=== PATIENT | male | born 1960 | race Caucasian/White ===

== ENCOUNTER 2023-02-18 12:20 | Outpatient (CLI) | payer MEDICAID, SELFPAY ==
--- NOTE | 2023-02-18 10:17 | DI.RAD_ITS ---
Exam(s) XR FOOT LT COMPLETE EXAM: XR FOOT LT COMPLETE CLINICAL HISTORY: left foot pain, dropped beam on leg, M79.672. TECHNIQUE: 2D digital imaging was performed. Three views. COMPARISON: CR LEFT FOOT COMPLETE from 12/31/2012 FINDINGS: BONES: No acute fracture is present. No bony destructive lesion is seen. Stable postsurgical change s in the 1st metatarsal and toes. JOINTS: No dislocation present. SOFT TISSUE: Normal. IMPRESSION: Postsurgical changes. No acute abnormality. DATA REPOSITORY: RADIATION DOSE DELIVERED:
--- NOTE | 2023-02-18 10:17 | DI.RAD_ITS ---
Exam(s) XR ANKLE LT COMPLETE EXAM: XR ANKLE LT COMPLETE CLINICAL HISTORY: left foot and ankle pain, dropped beam on leg, M79.672 TECHNIQUE: 2D digital imaging was performed. Three views. COMPARISON: CR XR FOOT LT COMPLETE from 02/18/2023 FINDINGS: BONES: There is a nondisplaced fracture seen at the tip of the lateral malleolus. No additional frac tures are seen. No bony destructive lesion is seen. JOINTS:The ankle mortise is normally aligned. SOFT TISSUE: Normal. IMPRESSION: Nondisplaced fracture of the lateral malleolus. DATA REPOSITORY: RADIATION DOSE DELIVERED:
== END 2023-02-18 12:40 ==
PROVIDERS: Visit Provider Physician Assistant
DX: S82.64XD Nondisplaced fracture of lateral malleolus of right fibula, subsequent encounter for closed fracture with routine healing; M79.672 Pain in left foot
CPT/HCPCS: 73610; 73630

== ENCOUNTER 2023-03-26 09:36 | Outpatient (CLI) | payer MEDICAID, SELFPAY ==
--- NOTE | 2023-03-26 08:23 | DI.RAD_ITS ---
Exam(s) XR FOOT LT COMPLETE EXAM: XR FOOT LT COMPLETE CLINICAL HISTORY: left ankle fx. TECHNIQUE: 2D digital imaging was performed. COMPARISON: CR LEFT FOOT COMPLETE from 12/31/2012 CR XR FOOT LT COMPLETE from 02/18/2023 FINDINGS: 3 views No evidence of acute fracture nor diastasis of the Lisfranc joint. Healed osteotomy site at the neck of the great toe metatarsal noted with 2 pins at this level and the re is a circumferential wire again noted associated with the proximal medial aspect of the proximal p halanx of the great toe. Lung to 2 knee orientated pins are noted across the PIP joints of the 2nd and 4th toes. Previously p resent similar pin in the 3rd toe seen on 12/31/2012 at has been removed. No hardware in the 5th toe . There is some degenerative change noted at the 2nd tarsometatarsal joint. No erosions evident. Ther e is no radiographic evidence of osteomyelitis. IMPRESSION: Multilevel findings as described above. No obvious acute osseous findings evident. DATA REPOSITORY: RADIATION DOSE DELIVERED:
--- NOTE | 2023-03-26 08:26 | DI.RAD_ITS ---
Exam(s) XR ANKLE LT COMPLETE EXAM: XR ANKLE LT COMPLETE CLINICAL HISTORY: left ankle fx. TECHNIQUE: 2D digital imaging was performed. COMPARISON: CR XR ANKLE LT COMPLETE from 02/18/2023 FINDINGS: 3 views There is soft tissue swelling over the lateral aspect of the ankle, more so than on the previous stud y. The previously described subtle nondisplaced fracture of the lateral malleolus is actually somewh at less evident on the present study. Talar dome unremarkable. There is no widening of the ankle mo rtise. The her malleoli appear unremarkable. No degenerative changes in the ankle and subtalar joints. No osseous tarsal coalition. Incidentally noted is increased density in the pre Achilles fat pad. IMPRESSION: Findings as above but no new osseous findings. DATA REPOSITORY: RADIATION DOSE DELIVERED:
== END 2023-03-26 09:37 | disposition home or self-care (01) ==
LOC: DIORS 09:37
PROVIDERS: Visit Provider Physician Assistant
DX: S82.62XD Displaced fracture of lateral malleolus of left fibula, subsequent encounter for closed fracture with routine healing (principal); X58.XXXD Exposure to other specified factors, subsequent encounter
CPT/HCPCS: 73610; 73630

== ENCOUNTER 2023-03-31 08:45 | Emergency (ER) | payer MEDICAID, SELFPAY ==
[2023-03-31 08:54] VITALS: BP 106/62; PULSE 57; RESP 18; TEMP 36.8; O2SAT 99
--- NOTE | 2023-03-31 09:00 | RT.EKG_ITS ---
APPROVED REPORT Exam: Resting ECG Reason for Exam: sob Patient Location: E HR:50 bpm ECG Measurements Heart Rate 50 AXIS NV 132 P 9 QRSd 90 QRS 79 QT 412 T 68 QTc 375 Conclusion Sinus bradycardia...rate< 60 ST elevation suggests acute pericarditis...ST >0.10mV, ant/lat/inf
--- NOTE | 2023-03-31 10:15 | DI.US_ITS ---
Exam(s) US EXTREMITY VENOUS BI EXAM: US EXTREMITY VENOUS BI CLINICAL HISTORY: leg swelling. TECHNIQUE: Bilateral lower extremity venous ultrasound performed using grayscale, color-flow, and sp ectral Doppler analysis. COMPARISON: No exams were available for comparison FINDINGS: The right common femoral, femoral and popliteal veins demonstrate normal compressibility, augmentatio n, and color Doppler. The posterior tibial and peroneal veins are patent. There is thrombus seen in the small saphenous vein measuring 12.5 cm in length. There is no thrombus seen in the greater saphe nous vein. The saphenofemoral junction is unremarkable. There is no evidence of a Javed's cyst. The soft tissues are unremarkable. The left common femoral, femoral and popliteal veins demonstrate normal compressibility, augmentation , and color Doppler. The posterior tibial and peroneal veins are patent. There is thrombus seen in b oth the greater saphenous and small saphenous veins. The thrombus in the greater saphenous vein lies 1 cm distal to from the saphenofemoral junction. There is a 2.9 x 1.6 x 5.1 cm Javed cyst. The sof t tissues are unremarkable. IMPRESSION: 1. No evidence of a right lower extremity DVT. 2. No evidence of a left lower extremity DVT. 3. Bilateral superficial thrombophlebitis. On the left the thrombus begins 1 cm distal to the saphen ofemoral junction. 4. Findings were discussed with the emergency department on the date of the examination. DATA REPOSITORY:
--- NOTE | 2023-03-31 10:15 | DI.RAD_ITS ---
Exam(s) XR CHEST 2V PA LATERAL EXAM: XR CHEST 2V PA LATERAL CLINICAL HISTORY: ?chf TECHNIQUE: 2D digital imaging was performed of the chest. Three images were obtained. PA and later al views were obtained. COMPARISON: No exams were available for comparison FINDINGS: MEDIASTINUM: Normal. HEART: Normal. PULMONARY VASCULATURE: Normal. LUNGS: There is diffuse prominence of the interstitium. No focal consolidating infiltrate is seen. PLEURAL SPACE: No pleural effusion or pneumothorax. BONE:Within normal limits for the patient's age. OTHER FINDINGS:Normal. IMPRESSION: Diffuse interstitial prominence without focal consolidation. Findings may reflect chronic interstiti al/pulmonary fibrosis. An acute interstitial process such as infection or edema cannot be excluded. Please correlate clinically. DATA REPOSITORY: RADIATION DOSE DELIVERED:
--- NOTE | 2023-03-31 10:29 | ED.GENADUL_ITS ---
Discharge Plan Disposition Patient Disposition: Home Condition: Stable Discharge Details Clinical Impression: Leg swelling, Superficial thrombosis of leg Primary Care Provider: Guanaco Schmitt ED Provider: Lc Kinsey Home Meds and New Rx's Prescriptions: New furosemide [Lasix] 20 mg tablet 20 mg PO QAM Qty: 14 0RF Eliquis DVT-PE Treat 30D Start 5 mg (74 tabs) tablets,dose pack 5 mg PO ONCE Qty: 74 0RF Rx Instructions: 10mg PO twice daily for 7 days then 5mg BID Continued meloxicam 15 MG tablet 15 mg DAILY amitriptyline 10 MG tablet 10 mg PO HS Serevent Diskus 1 EACH blister with device 50 mcg Inhalation BID gabapentin 300 MG capsule 300 mg TID fluticasone propionate [Flovent HFA] 1 PUFF HFA aerosol inhaler 2 puff Inhalation BID albuterol sulfate [Proventil HFA] 1 PUFF HFA aerosol inhaler 1 - 2 puff Inhalation DIRECTED finasteride 5 MG tablet 5 mg DAILY Pulmocare 1,000 ML liquid 240 ml PO BID Spiriva with HandiHaler 1 PUFF capsule, w/inhalation device 1 cap Inhalation DAILY dexlansoprazole [Dexilant] 60 MG capsule,biphase delayed releas 60 mg DAILY trazodone 50 mg Tablet 100 mg PO HS calcium carbonate-vitamin D3 600 mg-5 mcg (200 unit) Tablet 1 tab PO BID omeprazole 40 mg Capsule,Delayed Release(Dr/Ec) 40 mg PO BID famotidine 20 mg Tablet 20 mg PO BID melatonin 5 mg Tablet 5 mg PO HS Discharge Instructions Additional Instructions: You have a superficial blood clot in both lower extremities Take the blood thinner eliquis and the medicine to help remove fluid called furosemide as prescribed follow up with your primary care provider within 1-2 weeks and determine if they want you to continue the furosemide. They will also need to continue the eliquis prescription if you feel more ill, have difficulty breathing or chest pain return to the emergency department Medical Decision Making 62 yo male who is a chronic smoker and states he doesn't get routine visits with a pcp, comes in with several weeks of lower extremity swelling. Denies fevers, chills, chest pain. HE did suffer a left ankle fracture approximately 6 weeks ago and hasn't been as mobile as before. HE arrives stable caox4. No hypoxia, HR in the 50's. Denies any chest pain or dyspnea. HE does have pitting edema from the mid tibia down bilaterally, no calf tenderness, no rashes. He has no jvd. Bedside u/s with normal appearing ef without pericardial effusion. HE does appear to have mild b lines bilaterally on bedside u/s of the lungs. Suspect possible chf vs ckd, and also dvt. Will proceed with cbc, cmp, troponin, cxr and bilateral dvt u/s. Will also give a 20mg dose of lasix pt stable has been urinating and feels well. U/s shows bilateral superficial thrombi with close proximity to the femoral saphonous junction which will require anticaogulation. Labs with milk hyperkalemia otherwise no concerning findings, xray with question of interstitial prominence. HE is stable, discussed results with pt and he feels well enough for d/c and feel this is reasonable given reassuring workup. Will start on po lasix and eliquis and advised to f/u with pcp, return precautions given Differential Diagnosis Differential Diagnosis: chf, ckd, lymphedema, dvt Imaging Data Radiologic Study: Attestation: I personally reviewed and interpreted this imaging study as f cathi: Imaging: CT Scan Radiologist's impression: Exam(s) US EXTREMITY VENOUS BI EXAM:? US EXTREMITY VENOUS BI CLINICAL HISTORY: ? leg swelling.? TECHNIQUE:? Bilateral lower extremity venous ultrasound performed using grayscale, color-flow, and spectral Doppler analysis. COMPARISON:? No exams were available for comparison FINDINGS: The right common femoral, femoral and popliteal veins demonstrate normal compressibility, augmentation, and color Doppler. The posterior tibial and peroneal veins are patent.? There is thrombus seen in the small saphenous vein measuring 12.5 cm in length.? There is no thrombus seen in the greater saphenous vein.? The saphenofemoral junction is unremarkable.? There is no evidence of a Javed's cyst. The soft tissues are unremarkable. The left common femoral, femoral and popliteal veins demonstrate normal compressibility, augmentation, and color Doppler. The posterior tibial and peroneal veins are patent.? There is thrombus seen in both the greater saphenous and small saphenous veins.? The thrombus in the greater saphenous vein lies 1 cm distal to from the saphenofemoral junction.? There is a 2.9 x 1.6 x 5.1 cm Javed cyst.? The soft tissues are unremarkable. IMPRESSION: 1. No evidence of a right lower extremity DVT. 2. No evidence of a left lower extremity DVT. 3. Bilateral superficial thrombophlebitis.? On the left the thrombus begins 1 cm distal to the saphenofemoral junction. 4. Findings were discussed with the emergency department on the date of the examination. Radiologic Study #2: Attestation: I personally reviewed and interpreted this imaging study as follows: Imaging: X-Ray Radiologist's impression: Patient Name: José Luis Veras Unit #: [id number] Loc: ER ? Ordering Provider:? Lc Kinsey M.D. Status: REG ER ? Primary Care Provider: Guanaco Schmitt Date of Exam: 03/31/23 Sex: M ? Admission Date: 03/31/23? : 1960 ? Age: 62 ? Exam(s) XR CHEST 2V PA ? LATERAL EXAM:? XR CHEST 2V PA ? LATERAL CLINICAL HISTORY:? ?chf TECHNIQUE:? 2D digital imaging was performed of the chest.? Three images were obtained.? PA and lateral views were obtained. COMPARISON:? No exams were available for comparison FINDINGS: MEDIASTINUM: Normal.? HEART: Normal. PULMONARY VASCULATURE: Normal. LUNGS: There is diffuse prominence of the interstitium.? No focal consolidating infiltrate is seen. ? PLEURAL SPACE: No pleural effusion or pneumothorax. BONE:Within normal limits for the patient's age.? OTHER FINDINGS:Normal.? IMPRESSION: Diffuse interstitial prominence without focal consolidation.? Findings may reflect chronic interstitial/pulmonary fibrosis.? An acute interstitial process such as infection or edema cannot be excluded.? Please correlate clinically.? a Lab Data Lab results reviewed: Yes I reviewed the patient's lab results. ECG Data Attestation: I personally reviewed and interpreted this ECG (s) as follows: Prior ECG tracings: not available for review Interpretation: sinus bradycardia, rate of 50, pr 132, no stemi HPI General Date/Time Provider Initiated Documentation: 03/31/23 08:54 . Limitations to Documentation: no limitations . Information obtained by: patient . History of Present Illness 62 year old M presents to the emergency department with the chief complaint of leg swelling, described as moderate, Patient started experiencing this week(s) (2) and it has been constant. No relieving factors improve symptom(s), No exacerbating factors reported . Patient notes denies chest pain and fever/chills. Patient did receive the following treatments prior to arrival, none Related Data Home Medications Medication Instructions Recorded Confirmed albuterol sulfate 90 mcg/actuation 1 - 2 puff inhalation DIRECTED 12/29/12 03/31/23 aerosol inhaler (Proventil HFA) amitriptyline 10 mg tablet 10 mg PO HS 12/29/12 03/26/23 dexlansoprazole 60 mg 60 mg DAILY 12/29/12 03/26/23 capsule,biphase delayed release (Dexilant) finasteride 5 mg tablet 5 mg DAILY 12/29/12 03/26/23 fluticasone propionate 220 2 puff inhalation BID 12/29/12 03/26/23 mcg/actuation HFA aerosol inhaler (Flovent HFA) gabapentin 300 mg capsule 300 mg TID 12/29/12 03/26/23 meloxicam 15 mg tablet 15 mg DAILY 12/29/12 03/26/23 nut.tx.pulm.disord.soy,lacfree 240 ml PO BID 12/29/12 03/26/23 (Pulmocare oral liquid) salmeterol 50 mcg/dose blister 50 mcg inhalation BID 12/29/12 03/26/23 powder for inhalation (Serevent Diskus) tiotropium bromide 18 mcg capsule 1 cap inhalation DAILY 12/29/12 03/26/23 with inhalation device (Spiriva with HandiHaler) apixaban 5 mg (74 tabs) tablets in 5 mg PO ONCE #74 dose pk 03/31/23 a dose pack (Eliquis DVT-PE Treat 30D Start) calcium carbonate 600 mg-vitamin 1 tab PO BID 03/31/23 03/31/23 D3 5 mcg (200 unit) tablet famotidine 20 mg tablet 20 mg PO BID 03/31/23 03/31/23 furosemide 20 mg tablet (Lasix) 20 mg PO QAM #14 tabs 03/31/23 melatonin 5 mg tablet 5 mg PO HS 03/31/23 03/31/23 omeprazole 40 mg capsule,delayed 40 mg PO BID 03/31/23 03/31/23 release trazodone 50 mg tablet 100 mg PO HS 03/31/23 03/31/23 Previous Rx's Medication Instructions Recorded apixaban 5 mg (74 tabs) tablets in 5 mg PO ONCE #74 dose pk 03/31/23 a dose pack (Eliquis DVT-PE Treat 30D Start) furosemide 20 mg tablet (Lasix) 20 mg PO QAM #14 tabs 03/31/23 Allergies Allergy/AdvReac Type Severity Reaction Status Date / Time adhesive Allergy Severe Topical Unverified 03/31/23 08:58 Irritation Penicillins Allergy Severe Anaphylaxsi Unverified 03/31/23 08:58 s fentanyl Allergy Unverified 03/31/23 08:58 meperidine HCl [From Demerol] AdvReac Intermediate Nausea Unverified 03/31/23 08:58 morphine AdvReac Intermediate Skin Rash Unverified 03/31/23 08:58 Sulfa (Sulfonamide AdvReac Intermediate Skin Rash Unverified 03/31/23 08:58 Antibiotics) General Stated Complaint: GenMedical RAOUL: 3 Review of Systems All systems reviewed & are unremarkable except as noted in HPI and below Constitutional Constitutional: Denies chills and Denies fever(s) Cardiovascular Cardiovascular: Denies chest pain and Denies dyspnea Respiratory Respiratory: Denies cough and Denies dyspnea Gastrointestinal Gastrointestinal: Denies abdominal pain, Denies nausea and Denies vomiting Integumentary/Breasts Skin/Breast: Denies rash Psychiatric Psychiatric: Denies depression PFSH All Active Problems (Updated 03/31/23 @ 13:48 by Lc Kinsey MD) Leg swelling (Acute) Superficial thrombosis of leg (Acute) Closed fracture of left lateral malleolus (Acute ~02/16/23) Social History Smoking/Tobacco Use Status: Current every day Smoking risk assessment performed?: Yes Drug use: Never Exam Const General: no acute distress Orientation: alert HENMT Head: normal to inspection Ears: external ears normal General nose exam: external nose normal Mouth: moist mucous membranes Eyes General: appearance normal, both eyes and all related structures Neck Neck: normal visual inspection Resp Effort & Inspection: normal respiratory effort and able to speak in complete sentences Auscultation: clear to auscultation bilaterally Cardio Jugular venous pressure: no JVD Rate: regular rate Heart Sounds: no murmurs Skin General skin exam: no rashes or lesions noted Neuro General: patient alert and patient oriented x3 Extrem General: full ROM and capillary refill normal Psych Mental Status: mental status grossly normal Course Vital Signs Vital signs: Vital Signs Temperature 36.8 C 03/31/23 08:54 Pulse 57 L 03/31/23 08:54 Respiratory Rate 18 03/31/23 08:54 Blood Pressure 106/62 03/31/23 08:54 Pulse Oximetry 99 03/31/23 08:54 Temperature 36.8 C 03/31/23 08:54 Temperature Source Skin 03/31/23 08:54 Pulse 57 L 03/31/23 08:54 Respiratory Rate 18 03/31/23 08:54 Blood Pressure 106/62 03/31/23 08:54 Blood Pressure Position Sitting 03/31/23 08:54 Pulse Oximetry 99 03/31/23 08:54 Oxygen Delivery Method Room Air 03/31/23 08:54 Oxygen Flow Rate 0 03/31/23 08:54 Pain Level 5 03/31/23 08:54 POCUS Exam (ED) Limited Cardiac Exam DATE OF EXAM: 03/31/23 TIME OF EXAM: 10:31 PROVIDER THAT PERFORMED THE STUDY: Lc Kinsey REASON FOR EXAM: Other indication: peripheral edema VISUALIZED STRUCTURES: Four Chambers VIEW OBTAINED: Subxiphoid PERTINENT FINDINGS/IMPRESSION: No LV dysfunction and No pericardial effusion Exam complete Limited Thoracic Lung Exam DATE OF EXAM: 03/31/23 TIME OF EXAM: 10:32 PROVIDER THAT PERFORMED THE STUDY: Lc Kinsey REASON FOR EXAM: Other indication: peripheral edema VISUALIZED STRUCTURES: right anterior and left anterior PERTINENT FINDINGS/IMPRESSION: B-lines/left side and B-lines/right side Exam complete
[2023-03-31 10:31] LABS: Abs Immature Grans 0.03 10^3/uL (0.0-0.06); Absolute Basophil Count 0.09 10^3/uL (0.0-0.2); Absolute Eosinophil Count 0.17 10^3/uL (0.0-0.7); Absolute Lymphocyte Count 1.71 10^3/uL (1.2-3.4); Absolute Monocyte Count 0.78 10^3/uL (0.1-0.8); Absolute Neutrophil Count 6.22 10^3/uL (1.2-6.7); Eosinophils % 1.9; HCT 42.1 % (40.0-50.0); HGB 14.1 g/dL (13.5-17.5); Immature Grans % 0.3; MCH 31.2 pg (27.0-33.0); MCHC 33.5 % (32.0-36.0); MCV 93 fL (80-95); MPV 8.1 fL (8.0-11.0); Monocytes % 8.7; Neutrophils % 69.1; Platelet Count 295 10^3/uL (130-400); RBC 4.52 10^6/uL (4.36-5.78); RDW 13.8 % (11.8-14.1); RDW-SD 47.4 fL
[2023-03-31 10:35] VITALS: BP 116/66; PULSE 56; O2SAT 100
[2023-03-31 10:38] VITALS: BP 116/73; PULSE 52; RESP 22; TEMP 36.6; O2SAT 99
[2023-03-31 11:54] VITALS: BP 114/72; PULSE 54; RESP 18; O2SAT 99
[2023-03-31] MEDS: Acetaminophen 500 MG TAB 1000 MG PO (12:06)
[2023-03-31] MEDS: Furosemide 20 MG/2 ML VIAL IVP (12:07)
[2023-03-31 12:40] LABS: Bilirubin Negative (Negative); Blood Negative (Negative); Clarity Clear (Clear); Glucose Negative (Negative); Ketones Negative (Negative); Leukocyte Esterase Trace (Negative); Nitrite Negative (Negative); Specific Gravity 1.015 (1.005-1.025)
[2023-03-31 12:51] LABS: Bacteria Negative HPF (Negative); C & S Indicated? No; Casts Negative LPF (Negative); Crystals Negative HPF (Negative); Epithelial Cells Negative HPF (Negative); Mucus Negative (Negative); RBC 0-2 HPF (0-2)
[2023-03-31 12:56] LABS: ALT 14 U/L (16-63); AST 17 U/L (15-37); Albumin 3.4 g/dL (3.4-5.0); Alkaline Phosphatase 69 U/L (46-116); Anion Gap 7.6 mmol/L (3-11); BUN 7 mg/dL (7-18); Bilirubin, Total 0.5 mg/dL (0.2-1.0); CO2 24.4 mmol/L (21.0-32.0); CREATININE 0.9 mg/dL (0.70-1.30); Calcium 8.2 mg/dL (8.5-10.1); Chloride 104 mmol/L (98-107); Estimated GFR 96.57 (mL/min/1.73m2); Glucose 98 mg/dL (74-106); Potassium 5.2 mmol/L (3.5-5.1); Sodium 136 mmol/L (136-145); Total Protein 6.7 g/dL (6.4-8.2); Troponin I < 50 ng/L (<or=60)
[2023-03-31 14:05] VITALS: BP 113/67; PULSE 52; RESP 18; O2SAT 96
[2023-03-31 14:07] VITALS: BP 106/72; PULSE 54; RESP 18; O2SAT 99
== END 2023-03-31 14:06 | disposition home or self-care (01) ==
PROVIDERS: Emergency Provider Emergency Medicine; PCP Neuromusculoskeletal Medicine & OMM
DX: I82.812 Embolism and thrombosis of superficial veins of left lower extremity (principal); R60.0 Localized edema
CPT/HCPCS: 76604; 80053; 93005; 93308; 96374; 99284; 71046; 81003; 81015; 84484; 85025; 93010; 93970; J1941

== ENCOUNTER 2023-04-27 09:32 | Emergency (ER) | payer MEDICAID, SELFPAY ==
[2023-04-27] VITALS (12 sets, daily range): BP systolic 99–121; BP diastolic 62–73; PULSE 49–54; RESP 20–30; TEMP 36.8; O2SAT 98–100
--- NOTE | 2023-04-27 10:00 | DI.US_ITS ---
Exam(s) US LOWER EXTREMITY VENOUS LT EXAM: US LOWER EXTREMITY VENOUS LT CLINICAL HISTORY: recent dvt, pain is spreading proximally. TECHNIQUE: Lower extremity venous ultrasound performed using grayscale, color-flow, and spectral Do ppler analysis. COMPARISON: US US EXTREMITY VENOUS BI from 03/31/2023 FINDINGS: The common femoral, femoral and popliteal veins demonstrate normal compressibility, augmentation, and color Doppler. The posterior tibial and peroneal veins are patent. There has been decrease in the s ize extent of the thrombus in the greater saphenous vein, now visible in the distal thigh measuring 6 cm in length. Lesser saphenous vein thrombosis has also decreased, measuring 6 cm in length. A Sabina er's cyst is seen. IMPRESSION: Decrease in size and extent greater and lesser saphenous vein thrombosis. No evidence of DVT. Sabina er's cyst. DATA REPOSITORY:
--- NOTE | 2023-04-27 10:05 | W.ED.GENAD ---
Discharge Plan Disposition Patient Disposition: Home Condition: Good Discharge Details Clinical Impression: Superficial thrombosis of leg, Effusion of knee, Javed cyst, Left leg pain Primary Care Provider: Guanaco Schmitt ED Provider: Danette Moyer Home Meds and New Rx's Prescriptions: Continued meloxicam 15 MG tablet 15 mg DAILY amitriptyline 10 MG tablet 10 mg PO HS Serevent Diskus 1 EACH blister with device 50 mcg Inhalation BID gabapentin 300 MG capsule 300 mg TID fluticasone propionate [Flovent HFA] 1 PUFF HFA aerosol inhaler 2 puff Inhalation BID albuterol sulfate [Proventil HFA] 1 PUFF HFA aerosol inhaler 1 - 2 puff Inhalation DIRECTED finasteride 5 MG tablet 5 mg DAILY Pulmocare 1,000 ML liquid 240 ml PO BID Spiriva with HandiHaler 1 PUFF capsule, w/inhalation device 1 cap Inhalation DAILY dexlansoprazole [Dexilant] 60 MG capsule,biphase delayed releas 60 mg DAILY trazodone 50 mg Tablet 100 mg PO HS calcium carbonate-vitamin D3 600 mg-5 mcg (200 unit) Tablet 1 tab PO BID omeprazole 40 mg Capsule,Delayed Release(Dr/Ec) 40 mg PO BID famotidine 20 mg Tablet 20 mg PO BID melatonin 5 mg Tablet 5 mg PO HS furosemide [Lasix] 20 mg tablet 20 mg PO QAM Qty: 14 0RF Eliquis DVT-PE Treat 30D Start 5 mg (74 tabs) tablets,dose pack 5 mg PO ONCE Qty: 74 0RF Rx Instructions: 10mg PO twice daily for 7 days then 5mg BID Discharge Instructions Instructions: Leg Pain (ED) Additional Instructions: Your ultrasound is reassuring today. Your clot is getting smaller. Please continue with the Eliquis as previously prescribed. Martin wrap may help with swelling of the knee. Please encourage rest, ice, elevation. Tylenol as needed for discomfort. Please keep upcoming appointment with orthopedics. IF you develop fevers/chills, increased pain, redness, warmth or other new/worsening symptoms please seek care urgently once again. Referrals: Guanaco Schmitt [Primary Care Provider] - Discharge Data Discharge Date/Time-TO BE ENTERED AT DEPARTURE: 04/27/23 11:47 Medical Decision Making Patient is a 62-year-old male, companied by significant other, with chief complaint of increased left lower extremity pain. Patient was recently diagnosed with a DVT and is on Eliquis. No missed doses of his Eliquis. Is been 1 month since his previous diagnoses. He denies any chest pain or shortness of breath. States that he noted increased swelling of the calf, ankle and thigh. Denies any fevers or chills. On exam, patient appears nontoxic. No lower extremity edema. He does have some swelling to the lateral ankle but this seems to be chronic in nature after fracture few months ago. No erythema or warmth. Intact capillary refill. No calf swelling, palpable cord or pain at this time. He does have moderate effusion in the left knee which is not erythematous or warm. Well-healed previous surgical incision from total knee replacement. He states that he had this completed about 15 years ago. he does have increased pain with forced flexion but does have good range of motion. With that movement, pain does radiate up in the posterior thigh. Will obtain DVT study to evaluate for any worsening clot burden although with him not having any missed doses of Eliquis, I find this less likely. Were concerned about the effusion in the knee which could be associated with the anticoagulation or abnormal strain on the knee on the patient denies any acute trauma. I do not see any indication of infection at this time. DVT study shows improving superficial clot. Also has Bakers cyst, no worse than previous. Discussed with patient. He has had a TKA on the ipsilateral side, has a small effusion. Advised pain likely associated wit this. encouraaged f/u with ortho. Encouraged he continue with his anticoagulation. Return precautions dsicussed. Will apply martin to help with discomfort/swelling. Advised RICE. All of his questions and concerns were addressed, he is in agreement with this plan. HPI General Date/Time Provider Initiated Documentation: 04/27/23 10:03. Limitations to Documentation: no limitations. Information obtained by: patient, family () and RN notes reviewed. History of Present Illness 62 year old M presents to the emergency department with the chief complaint of left calf pain, described as moderate and similar to prior episodes, with intensity rated at 7. Quality is described as aching, and is localized to the left and lower extremity. Patient reports no radiation. Patient started experiencing this week(s) and it has been constant (had initially improved but has recently increased again). No relieving factors improve symptom(s), No exacerbating factors reported . Patient notes no other symptoms.. Patient did receive the following treatments prior to arrival, other (anticoagulated) Related Data Home Medications Medication Instructions Recorded Confirmed albuterol sulfate 90 mcg/actuation 1 - 2 puff inhalation DIRECTED 12/29/12 04/27/23 aerosol inhaler (Proventil HFA) amitriptyline 10 mg tablet 10 mg PO HS 12/29/12 04/27/23 dexlansoprazole 60 mg 60 mg DAILY 12/29/12 04/27/23 capsule,biphase delayed release (Dexilant) finasteride 5 mg tablet 5 mg DAILY 12/29/12 04/27/23 fluticasone propionate 220 2 puff inhalation BID 12/29/12 04/27/23 mcg/actuation HFA aerosol inhaler (Flovent HFA) gabapentin 300 mg capsule 300 mg TID 12/29/12 04/27/23 meloxicam 15 mg tablet 15 mg DAILY 12/29/12 04/27/23 nut.tx.pulm.disord.soy,lacfree 240 ml PO BID 12/29/12 04/27/23 (Pulmocare oral liquid) salmeterol 50 mcg/dose blister 50 mcg inhalation BID 12/29/12 04/27/23 powder for inhalation (Serevent Diskus) tiotropium bromide 18 mcg capsule 1 cap inhalation DAILY 12/29/12 04/27/23 with inhalation device (Spiriva with HandiHaler) apixaban 5 mg (74 tabs) tablets in 5 mg PO ONCE #74 dose pk 03/31/23 04/27/23 a dose pack ([employer] DVT-PE Treat 30D Start) calcium carbonate 600 mg-vitamin 1 tab PO BID 03/31/23 04/27/23 D3 5 mcg (200 unit) tablet famotidine 20 mg tablet 20 mg PO BID 03/31/23 04/27/23 furosemide 20 mg tablet (Lasix) 20 mg PO QAM #14 tabs 03/31/23 04/27/23 melatonin 5 mg tablet 5 mg PO HS 03/31/23 04/27/23 omeprazole 40 mg capsule,delayed 40 mg PO BID 03/31/23 04/27/23 release trazodone 50 mg tablet 100 mg PO HS 03/31/23 04/27/23 Previous Rx's Medication Instructions Recorded apixaban 5 mg (74 tabs) tablets in 5 mg PO ONCE #74 dose pk 03/31/23 a dose pack (Eliquis DVT-PE Treat 30D Start) furosemide 20 mg tablet (Lasix) 20 mg PO QAM #14 tabs 03/31/23 Allergies Allergy/AdvReac Type Severity Reaction Status Date / Time adhesive Allergy Severe Topical Unverified 03/31/23 08:58 Irritation Penicillins Allergy Severe Anaphylaxsi Unverified 03/31/23 08:58 s fentanyl Allergy Unverified 03/31/23 08:58 meperidine HCl [From Demerol] AdvReac Intermediate Nausea Unverified 03/31/23 08:58 morphine AdvReac Intermediate Skin Rash Unverified 03/31/23 08:58 Sulfa (Sulfonamide AdvReac Intermediate Skin Rash Unverified 03/31/23 08:58 Antibiotics) General Stated Complaint: Vascular RAOUL: 3 Review of Systems Constitutional Constitutional: Reports as per HPI, Denies chills, Denies fever(s) and Denies weakness Cardiovascular Cardiovascular: Reports as per HPI, Denies chest pain, Denies dyspnea and Denies dyspnea on exertion Respiratory Respiratory: Reports as per HPI, Denies cough, Denies dyspnea and Denies dyspnea on exertion Musculoskeletal Musculoskeletal: Reports as per HPI and Denies tingling Integumentary/Breasts Skin/Breast: Reports as per HPI, Denies rash and Denies wounds Neurologic Neurologic: Reports as per HPI, Denies tingling, Denies paresthesias and Denies weakness PFSH All Active Problems (Updated 05/01/23 @ 00:11 by EDGARDO STROUD) Effusion of knee (Acute) Javed cyst (Acute) Left leg pain (Acute) Closed fracture of left lateral malleolus (Acute ~02/16/23) Social History Smoking/Tobacco Use Status: Current every day Smoking risk assessment performed?: Yes Alcohol Intake: never Drug use: Never Substance use type: does not use Housing: house Do you feel safe at home: Yes Do you feel safe in your relationship?: Yes Exam Const General: cooperative, healthy appearing, comfortable, no acute distress, well developed and well groomed Nutritional Appearance: well nourished and thin Orientation: alert and awake Resp Effort & Inspection: normal respiratory effort, able to speak in complete sentences and no respiratory distress Auscultation: clear to auscultation bilaterally Cardio Rate: regular rate Rhythm: regular rhythm Heart Sounds: S1 normal and S2 normal Skin General skin exam: no rashes or lesions noted Lesions: no lesions Rashes: no rashes Trauma: no lacerations or abrasions Neuro General: patient alert and patient awake Cognition: normal cognition Speech: speech normal Gait: normal gait Motor: muscle tone normal throughout Sensory Exam: no sensory deficits noted Extrem General: capillary refill normal, normal exam except as noted, no pedal edema, normal gait, calf tenderness on the left, no cyanosis, no edema and other (2+ distal pulses) Left lower extremity: normal capillary refill and knee Details: tenderness and knee ligament exam normal; ROM abnormal (full extension, missing full flexion), no lacerations (well healed surgical incision), no ecchymosis, no crepitus, no deformity and no unusual warmth (no erythema or rash); no cyanosis Psych Appearance: grossly normal and well kempt Mental Status: mental status grossly normal Speech and Movement: speech and movement normal Course Vital Signs Vital signs: Vital Signs Temperature 36.8 C 04/27/23 09:45 Pulse 54 L 04/27/23 09:45 Respiratory Rate 20 04/27/23 09:45 Blood Pressure 99/62 L 04/27/23 09:45 Pulse Oximetry 98 04/27/23 09:45 Temperature 36.8 C 04/27/23 09:45 Temperature Source Oral 04/27/23 09:45 Pulse 54 L 04/27/23 09:45 Respiratory Rate 20 04/27/23 09:45 Respiratory Effort Normal, Non-Labored 04/27/23 09:48 Blood Pressure 99/62 L 04/27/23 09:45 Blood Pressure Position Sitting 04/27/23 09:45 Pulse Oximetry 98 04/27/23 09:45 Oxygen Delivery Method Room Air 04/27/23 09:45 Oxygen Flow Rate 0 04/27/23 09:45 Pain Level 7 04/27/23 09:45
== END 2023-04-27 11:47 | disposition home or self-care (01) ==
PROVIDERS: Emergency Provider Physician Assistant; PCP Neuromusculoskeletal Medicine & OMM
DX: M79.662 Pain in left lower leg (principal); M71.22 Synovial cyst of popliteal space [Baker], left knee; Z86.718 Personal history of other venous thrombosis and embolism; Z79.01 Long term (current) use of anticoagulants
CPT/HCPCS: 99283; 93971

== ENCOUNTER 2023-05-07 09:32 | Outpatient (CLI) | payer MEDICAID, SELFPAY ==
--- NOTE | 2023-05-07 10:03 | DI.RAD_ITS ---
Exam(s) XR ANKLE LT COMPLETE EXAM: XR ANKLE LT COMPLETE CLINICAL HISTORY: F/U FRACTURE. TECHNIQUE: 2D digital imaging was performed. COMPARISON: CR XR ANKLE LT COMPLETE from 03/26/2023 FINDINGS: 3 views The amount of soft tissue swelling laterally is further decreased. There are no malleolar fractures evident at this time. No widening of the ankle mortise. Talar dome unremarkable. No evidence of os seous tarsal coalition. No obvious degenerative changes in the subtalar and tibiotalar joints. IMPRESSION: As above. DATA REPOSITORY: RADIATION DOSE DELIVERED:
== END 2023-05-07 09:33 | disposition home or self-care (01) ==
LOC: DIORS 09:32
PROVIDERS: PCP Neuromusculoskeletal Medicine & OMM; Referring Provider Neuromusculoskeletal Medicine & OMM; Visit Provider Student in an Organized Health Care Education/Training Program
DX: S82.62XD Displaced fracture of lateral malleolus of left fibula, subsequent encounter for closed fracture with routine healing (principal); X58.XXXD Exposure to other specified factors, subsequent encounter
CPT/HCPCS: 73610

== ENCOUNTER 2025-05-18 10:54 | Emergency (ER) | payer MEDICAID, SELFPAY ==
[2025-05-18] VITALS (22 sets, daily range): BP systolic 103–141; BP diastolic 63–86; PULSE 55–80; RESP 13–24; TEMP 36.4; O2SAT 97–100
--- NOTE | 2025-05-18 12:00 | DI.CT_ITS ---
Exam(s) CT ABDOMEN PELVIS W EXAM: CT ABDOMEN PELVIS W CLINICAL HISTORY: Rectal pain, cocnern for abscess/mass TECHNIQUE: Imaging Protocol: Axial computed tomography images with coronal and sagittal reformatted images were created and reviewed. CONTRAST MATERIAL: Intravenous: Omnipaque 350 Contrast volume:75 mL Oral: No COMPARISON: No exams were available for comparison FINDINGS: ABDOMEN: Lung Bases: There are findings of prior gastric surgery. There are emphysematous changes in the lungs. There is an dependent infiltrate in the right lower lobe which may represent atelectasis but pneumonia cannot be excluded. Liver: Normal density. There is a 1.3 x 1.9 cm hypodensity in the periphery of the liver (series 8, image 23. Portal, Superior Mesenteric, and Splenic Veins: Unremarkable. Gallbladder and Biliary Tract: The gallbladder is not visualized. The common duct is less than 7 mm. Pancreas: Normal density, no abnormal calcifications or inflammatory process. Spleen: Normal. Adrenals: No masses seen. Kidneys: Normal size, contour and axis. No radiodense stones or obstructive uropathy. There are bilateral renal cysts. No follow-up is recommended. Abdominal Aorta: Abdominal portion non-dilated. Atherosclerotic calcification is present. Bowel: The duodenum and proximal jejunum are distended to the level of the anastomosis in the left upper quadrant of the abdomen. There are is also anastomosis in the right colon. No bowel wall thickening is present. There is no pneumatosis. Peritoneal Cavity: No ascites, collection or mesenteric inflammatory response. No free air. Lymph Nodes: Within normal limits. Bones: Within normal limits for the patient's age. There is a vertebral plasty of T12. There is chronic compression of the L1 vertebral body. Soft Tissues: Unremarkable. There is no evidence of a perirectal abscess. There is edema seen in the gluteal soft tissues but no focal fluid collection is seen. No skin lesions are seen to suggest an ulcer. No evidence of osteomyelitis is present. PELVIS: Bladder: Symmetric distention, no gross wall thickening. Reproductive Organs: The prostate gland is mildly enlarged. Lymph Nodes: Within normal limits. Bones: Within normal limits for the patient's age. IMPRESSION: 1. There is no evidence of a perirectal abscess. 2. Mild edema seen in the subcutaneous gluteal soft tissues. No focal fluid collection is seen. 3. Postsurgical changes with anastomoses seen in the right colon and proximal small bowel. Findings suggestive of gastric bypass surgery are also noted. 4. There is distension of the duodenum and proximal jejunum to the level of the anastomosis. Obstruction cannot be excluded. 5. 1.3 x 1.9 cm hypodensity in the periphery of the liver. Outpatient MRI of the liver without and with contrast is recommended for further evaluation. 6. Infiltrate in the right lower lobe of the lung which may represent atelectasis or pneumonia. Please correlate clinically. RADIATION DOSE DELIVERED: 205.75mGy.cm Total DLP DATA REPOSITORY: All CT scans at this facility are submitted to the National Radiology Data Registry (NRDR) Dose Index Registry (DIR) with the [employer] ([employer]). RADIATION OPTIMIZATION: All CT scans at this facility use at least one of these dose optimization techniques: automated exposure control; mA and/or kV adjustment per patient size (includes targeted exams where dose is matched to clinical indication); or iterative reconstruction.
--- NOTE | 2025-05-18 12:07 | W.ED.GENAD ---
Discharge Plan Disposition Patient Disposition: Home Discharge Details Clinical Impression: Chronic rectal pain, Abnormal CT of liver Primary Care Provider: Guanaco Schmitt ED Provider: George Pritchard Home Meds and New Rx's Prescriptions: New capsaicin [CapsAid ES] 0.1 % cream 1 applic topical BID Qty: 42.5 0RF Rx Instructions: Do not wash area for at least 30 min after application tramadol 25 mg tablet 25 mg PO Q6H PRNQty: 12 0RF No Action amitriptyline 10 MG tablet 10 mg PO HS albuterol sulfate [Proventil HFA] 1 PUFF HFA aerosol inhaler 1 - 2 puff Inhalation DIRECTED Pulmocare 1,000 ML liquid 240 ml PO BID trazodone 50 mg Tablet 150 mg PO HS calcium carbonate-vitamin D3 600 mg-5 mcg (200 unit) Tablet 1 tab PO BID omeprazole 40 mg Capsule,Delayed Release(Dr/Ec) 40 mg PO BID famotidine 20 mg Tablet 20 mg PO BID melatonin 5 mg Tablet 5 mg PO HS furosemide [Lasix] 20 mg tablet 20 mg PO QAM Qty: 14 0RF Eliquis DVT-PE Treat 30D Start 5 mg (74 tabs) tablets,dose pack 5 mg PO ONCE Qty: 74 0RF Rx Instructions: 10mg PO twice daily for 7 days then 5mg BID nortriptyline 25 mg capsule 25 mg PO ONCE Patient Comments: TAKE ONE CAPSULE BY MOUTH EVERY NIGHT AT BEDTIME betamethasone, augmented 0.05 % cream 1 applic TOPICAL BID Patient Comments: APPLY TOPICALLY TO AFFECTED AREA(S) TWO TIMES A DAY FOR 90 DAYS hydrocortisone 2.5 % cream with perineal applicator 1 applic topical TID Patient Comments: APPLY TOPICALL TO RECTUM VIA APPLICATOR THREE TIMES A DAY betamethasone dipropionate 0.05 % cream 1 applic TOPICAL BID PRN Patient Comments: APPLY 1 APPLICATION TOPICALLY TO THE AFFECTED AREA TWICE DAILY NEEDED Ensure Liquid PO DAILY Patient Comments: DRINK 2 SHAKES BY MOUTH A SNACK OR WITH A SMALL MEAL DAILY Discharge Instructions Instructions: Proctitis, Chronic pain Additional Instructions: Please follow-up with your primary care provider as well as her general surgery practice who you have been referred to for colonoscopy which should occur over the next 1 to 2 months. If you do not hear from our general surgery practice please call [facility] at [phone]. Please take your medications as prescribed. Please return to the emergency department you develop worsening symptoms to include pain, rectal bleeding, fever, chills, vomiting or any other new or concerning symptoms. HPI General Date/Time Provider Initiated Documentation: 05/18/25 10:55. HPI Narrative: 64-year-old male with a past med history of COPD, CAD, status post SD, gastric surgery, multiple pack per day smoker for many years, family history significant for multiple cancers to include GI, presents for evaluation of rectal pain. Patient notes that symptoms began approximately 6 to 8 weeks ago. He was previously evaluated at outside facility and was presumptively diagnosed with a painful hemorrhoid although he notes that a rectal exam was not done at that time. Notes he was provided topical treatments however they did not improve his symptoms. Notes severe pain, much worse when having a bowel movement although denies any hematochezia, or changes to the stool. Does endorse a approximately 20 pound weight loss over the past 6 months which has been unintentional, without any significant changes to his diet or other habits. He denies any associated fever, chills, night sweats, vomiting, or any other new or concerning symptoms. Related Data Home Medications ?Medication ?Instructions ?Recorded ?Confirmed albuterol sulfate 90 mcg/actuation 1 - 2 puff inhalation DIRECTED 12/29/12 05/18/25 aerosol inhaler (Proventil HFA) amitriptyline 10 mg tablet 10 mg PO HS 12/29/12 05/18/25 Held on 05/18/25. Instructions: Changed by Provider [email or web address] 240 ml PO BID 12/29/12 05/18/25 (Pulmocare oral liquid) Held on 05/18/25. Instructions: Pt Stopped/Never Started apixaban 5 mg (74 tabs) tablets in 5 mg PO ONCE #74 dose pk 03/31/23 05/18/25 a dose pack (Eliquis DVT-PE Treat 30D Start) Held on 05/18/25. Instructions: Pt Stopped/Never Started calcium 600 mg (as 1 tab PO BID 03/31/23 05/18/25 carbonate)-vitamin D3 5 mcg (200 unit) tablet famotidine 20 mg tablet 20 mg PO BID 03/31/23 05/18/25 furosemide 20 mg tablet (Lasix) 20 mg PO QAM #14 tabs 03/31/23 05/18/25 melatonin 5 mg tablet 5 mg PO HS 03/31/23 05/18/25 Held on 05/18/25. Instructions: Pt Stopped/Never Started omeprazole 40 mg capsule,delayed 40 mg PO BID 03/31/23 05/18/25 release trazodone 50 mg tablet 150 mg PO HS 03/31/23 05/18/25 betamethasone dipropionate 0.05 % 1 applic topical BID PRN 05/18/25 05/18/25 topical cream betamethasone, augmented 0.05 % 1 applic topical BID 05/18/25 05/18/25 topical cream capsaicin 0.1 % topical cream 1 applic topical BID Anal/rectal 05/18/25 (CapsAid ES) pain #42.5 grams food supplemt, lactose-reduced ml PO DAILY 05/18/25 (Ensure oral liquid) hydrocortisone 2.5 % topical cream 1 applic topical TID 05/18/25 05/18/25 with perineal applicator nortriptyline 25 mg capsule 25 mg PO ONCE 05/18/25 05/18/25 tramadol 25 mg tablet 25 mg PO Q6H PRN #12 tabs 05/18/25 Previous Rx's ?Medication ?Instructions ?Recorded apixaban 5 mg (74 tabs) tablets in 5 mg PO ONCE #74 dose pk 03/31/23 a dose pack ([place] DVT-PE Treat 30D Start) Held on 05/18/25. Instructions: Pt Stopped/Never Started furosemide 20 mg tablet (Lasix) 20 mg PO QAM #14 tabs 03/31/23 capsaicin 0.1 % topical cream 1 applic topical BID Anal/rectal 05/18/25 (CapsAid ES) pain #42.5 grams tramadol 25 mg tablet 25 mg PO Q6H PRN #12 tabs 05/18/25 Allergies Allergy/AdvReac Type Severity Reaction Status Date / Time adhesive Allergy Severe Topical Unverified 05/18/25 11:20 Irritation Penicillins Allergy Severe Anaphylaxsi Unverified 05/18/25 11:20 s chlorhexidine Allergy Intermediate rash Verified 05/18/25 11:20 fentanyl Allergy Unknown Unverified 05/18/25 11:20 meperidine HCl (From Demerol) AdvReac Intermediate Nausea Unverified 05/18/25 11:20 morphine AdvReac Intermediate Skin Rash Unverified 05/18/25 11:20 Sulfa (Sulfonamide AdvReac Intermediate Skin Rash Unverified 05/18/25 11:20 Antibiotics) General Stated Complaint: GenMedical RAOUL: 3 Review of Systems All systems reviewed & are unremarkable except as noted in HPI and below Exam Narrative Exam Narrative: Gen: A&O NAD. Emaciated with bitemporal wasting HEENT: NCAT, EOMI, not icteric. External ears normal. No rhinorrhea. Moist mucous membranes. Neck: Supple, full range of motion, no observable masses, No meningeal sign. Lungs: No Respiratory distress. CV: RRR, no edema. Abdomen: Soft, nondistended, No rebound tenderness. Rectal: Normal external rectal exam, no hemorrhoids, anal fissures, or skin tags noted. Exquisite tenderness on digital exam, however if no palpable masses appreciable. MSK: No joint swelling, no redness. Skin: No rashes, petechiae, lesions. Normal color per patient. Neuro: Normal Gait, Grossly intact. Psych: Appropriate for situation. Course 14: 25 Case discussed with [facility] regarding GI consult for follow-up for colonoscopy and to discuss possibility of ischemic proctitis. Reevaluation(s) Initial Evaluation: 14:40 Patient reassessed, resting comfortably in the emergency department, no acute distress. Notes some improvement of his pain, although it is still persistent. Abdominal examination remains benign. Consultations Consultation #1: Case discussed with Dr. Mcgregor (General Surgery) who will evaluate the patient Time: 15:52 Consultation #2: Case discussed with Dr. Mcgregor (General Surgery) who recommends discharge for outpatient follow up with PCP and referall to [facility] for colonoscopy. Recommends capsaicin cream [place] for pain management. Vital Signs Vital signs: Vital Signs Temperature 36.4 C 05/18/25 11:05 Pulse 80 05/18/25 11:05 Respiratory Rate 16 05/18/25 11:05 Blood Pressure 103/72 05/18/25 11:05 Pulse Oximetry 98 05/18/25 11:05 Temperature 36.4 C 05/18/25 11:12 Pulse 78 05/18/25 11:12 Respiratory Rate 16 05/18/25 11:12 Blood Pressure 103/72 05/18/25 11:05 Pulse Oximetry 97 05/18/25 11:12 Oxygen Delivery Method Room Air 05/18/25 11:12 Oxygen Flow Rate 0 05/18/25 11:05 Pain Level 9 05/18/25 11:05 Lab/Test Results Lab/Test Results: Laboratory Tests Range/Units 05/18/25 05/18/25 12:03 12:15 WBC (4.4-10.8) 10^3/uL 9.18 RBC (4.36-5.78) 10^6/uL 4.65 Hgb (13.5-17.5) g/dL 13.7 Hct (40.0-50.0) % 40.4 MCV (80-95) fL 87 MCH (27.0-33.0) pg 29.5 MCHC (32.0-36.0) % 33.9 RDW (11.8-14.1) % 14.6 H Plt Count (130-400) 10^3/uL 310 MPV (8.0-11.0) fL 8.3 Immature Gran % % 0.3 Neutrophils % % 73.6 Lymphocytes % % 15.3 Monocytes % % 7.7 Eosinophils % % 2.2 Basophils % % 0.9 Nucleated RBC % (0.0-0.3) % 0.0 Absolute Neutrophils (1.2-6.7) 10^3/uL 6.76 H Absolute Lymphocytes (1.2-3.4) 10^3/uL 1.40 Absolute Monocytes (0.1-0.8) 10^3/uL 0.71 Absolute Eosinophils (0.0-0.7) 10^3/uL 0.20 Absolute Basophils (0.0-0.2) 10^3/uL 0.08 VBG Lactate (<or=2.0) mmol/L 1.0 Sodium (136-145) mmol/L 132 L Potassium (3.5-5.1) mmol/L 4.8 Chloride (98-107) mmol/L 100 Carbon Dioxide (21.0-32.0) mmol/L 24.4 Anion Gap (3-11) mmol/L 7.6 BUN (7-18) mg/dL 9 Creatinine (0.70-1.30) mg/dL 1.0 Est GFR (CKD-EPI 2020) (mL/min/1.73m2) 84.05 Glucose (74-106) mg/dL 99 Calcium (8.5-10.1) mg/dL 8.1 L Total Bilirubin (0.2-1.0) mg/dL 0.5 AST (15-37) U/L 15 ALT (16-63) U/L 15 L Alkaline Phosphatase (46-116) U/L 61 Total Protein (6.4-8.2) g/dL 7.0 Albumin (3.4-5.0) g/dL 3.7 Lipase (<78) U/L 14 Urine Color (Yellow) Straw Urine Clarity (Clear) Clear Urine pH (5-8) 6.5 Ur Specific [place] (1.005-1.025) 1.015 Urine Protein (Neg-Trace) mg/dL 30 H Urine Ketones (Negative) mg/dL Trace H Urine Blood (Negative) Negative Urine Nitrite (Negative) Negative Urine Bilirubin (Negative) Negative Urine Urobilinogen (Up to 0.2) mg/dL 2.0 H Ur Leukocyte Esterase (Negative) Trace H Urine RBC (0-2) HPF Negative Urine WBC (0-5) HPF 0-2 Ur Epithelial Cells (Negative) HPF Negative Urine Crystals (Negative) HPF Negative Urine Bacteria (Negative) HPF Few Urine Casts (Negative) LPF Negative Urine Mucus (Negative) Negative Ur Culture Indicated? No Urine Glucose (Negative) mg/dL Negative Medical Decision Making 64-year-old male presents as above. Vital signs within normal limits, given nature of patient's complaints, without obvious thrombosed external hemorrhoid on examination, there is concern for possible other causes of the patient's pain to include malignancy, abscess, less likely prostatitis. Given his significant risk factors of heavy smoking and multiple family cancers, will obtain screening labs and imaging to include a CAT scan of the abdomen pelvis to assess for possible large masses. Shared workup be benign, will refer patient for colonoscopy for further management. [employer]igator will arrange referral for outpatient colonscopy. Imaging Data Radiologic Study: Radiologist's impression: Exam(s) CT ABDOMEN PELVIS W EXAM: CT ABDOMEN PELVIS W CLINICAL HISTORY: Rectal pain, cocnern for abscess/mass TECHNIQUE: Imaging Protocol: Axial computed tomography images with coronal and sagittal reformatted images were created and reviewed. CONTRAST MATERIAL: Intravenous: Omnipaque 350 Contrast volume:75 mL Oral: No COMPARISON: No exams were available for comparison FINDINGS: ABDOMEN: Lung Bases: There are findings of prior gastric surgery. There are emphysematous changes in the lungs. There is an dependent infiltrate in the right lower lobe which may represent atelectasis but pneumonia cannot be excluded. Liver: Normal density. There is a 1.3 x 1.9 cm hypodensity in the periphery of the liver (series 8, image 23. Portal, Superior Mesenteric, and Splenic Veins: Unremarkable. Gallbladder and Biliary Tract: The gallbladder is not visualized. The common duct is less than 7 mm. Pancreas: Normal density, no abnormal calcifications or inflammatory process. Spleen: Normal. Adrenals: No masses seen. Kidneys: Normal size, contour and axis. No radiodense stones or obstructive uropathy. There are bilateral renal cysts. No follow-up is recommended. Abdominal Aorta: Abdominal portion non-dilated. Atherosclerotic calcification is present. Bowel: The duodenum and proximal jejunum are distended to the level of the anastomosis in the left upper quadrant of the abdomen. There are is also anastomosis in the right colon. No bowel wall thickening is present. There is no pneumatosis. Peritoneal Cavity: No ascites, collection or mesenteric inflammatory response. No free air. Lymph Nodes: Within normal limits. Bones: Within normal limits for the patient's age. There is a vertebral plasty of T12. There is chronic compression of the L1 vertebral body. Soft Tissues: Unremarkable. There is no evidence of a perirectal abscess. There is edema seen in the gluteal soft tissues but no focal fluid collection is seen. No skin lesions are seen to suggest an ulcer. No evidence of osteomyelitis is present. PELVIS: Bladder: Symmetric distention, no gross wall thickening. Reproductive Organs: The prostate gland is mildly enlarged. Lymph Nodes: Within normal limits. Bones: Within normal limits for the patient's age. IMPRESSION: 1. There is no evidence of a perirectal abscess. 2. Mild edema seen in the subcutaneous gluteal soft tissues. No focal fluid collection is seen. 3. Postsurgical changes with anastomoses seen in the right colon and proximal small bowel. Findings suggestive of gastric bypass surgery are also noted. 4. There is distension of the duodenum and proximal jejunum to the level of the anastomosis. Obstruction cannot be excluded. 5. 1.3 x 1.9 cm hypodensity in the periphery of the liver. Outpatient MRI of the liver without and with contrast is recommended for further evaluation. 6. Infiltrate in the right lower lobe of the lung which may represent atelectasis or pneumonia. Please correlate clinically. PFSH All Active Problems (Updated 05/18/25 @ 16:25 by George Pritchard MD) Abnormal CT of liver (Acute) Chronic rectal pain (Acute) Closed fracture of left lateral malleolus (Acute ~02/16/23) Social History Smoking/Tobacco Use Status: Current every day Tobacco Type: cigarettes Smoking risk assessment performed?: Yes Alcohol Intake: never Drug use: Never Substance use type: does not use Housing: house Do you feel safe at home: Yes Do you feel safe in your relationship?: Yes
[2025-05-18 12:12] LABS: Abs Immature Grans 0.03 10^3/uL (0.0-0.06); HCT 40.4 % (40.0-50.0); HGB 13.7 g/dL (13.5-17.5); Immature Grans % 0.3 %; MCH 29.5 pg (27.0-33.0); MCHC 33.9 % (32.0-36.0); MCV 87 fL (80-95); MPV 8.3 fL (8.0-11.0); Platelet Count 310 10^3/uL (130-400); RBC 4.65 10^6/uL (4.36-5.78); RDW 14.6 % (11.8-14.1); RDW-SD 47.3 fL; WBC 9.18 10^3/uL (4.4-10.8)
[2025-05-18] MEDS: Cetirizine 10 MG TAB PO (12:16)
[2025-05-18] MEDS: HYDROmorphone 2 MG/ML SYR 0.5 MG IVP (12:16)
[2025-05-18 12:31] LABS: Lipase 14 U/L (<78)
[2025-05-18 12:35] LABS: ALT 15 U/L (16-63); AST 15 U/L (15-37); Albumin 3.7 g/dL (3.4-5.0); Alkaline Phosphatase 61 U/L (46-116); Anion Gap 7.6 mmol/L (3-11); BUN 9 mg/dL (7-18); Bilirubin, Total 0.5 mg/dL (0.2-1.0); CO2 24.4 mmol/L (21.0-32.0); Calcium 8.1 mg/dL (8.5-10.1); Chloride 100 mmol/L (98-107); Estimated GFR 84.05 (mL/min/1.73m2); Glucose 99 mg/dL (74-106); Potassium 4.8 mmol/L (3.5-5.1); Sodium 132 mmol/L (136-145); Total Protein 7.0 g/dL (6.4-8.2)
[2025-05-18] MEDS: Normal Saline - Diluent 50 ML VIAL IJ (13:25)
[2025-05-18] MEDS: Omnipaque 350 MG/ML 100 ML BTL 75 ML IJ (13:26)
[2025-05-18 13:29] LABS: Glucose Negative (Negative)
[2025-05-18 13:48] LABS: RBC Negative HPF (0-2); WBC 0-2 HPF (0-5)
[2025-05-18 13:49] LABS: C & S Indicated? No
[2025-05-18] MEDS: HYDROmorphone 2 MG/ML SYR 1 MG IVP (14:05)
--- NOTE | 2025-05-18 16:22 | SCONE_ITS ---
Date of service: 05/18/25 Time of Service: 16:22 Assessment and Plan Assessment and plan (1) Chronic rectal pain: Status: Acute Assessment and plan: Patient has tried appointments for this. It does not appear to be associated with bowel movements nor skin irritation. Unusual, but in some cases capsaicin ointment (chemical in jalapeno peppers which causes burning on the tongue) can be helpful for this. The dosage for this is lower than the capsaicin cream sold commonly [id number]. (0.006% is recommended dosage for anal region). This will be difficult for him to obtain. An alternative is to use a barrier cream such as Desitin or Dilip's Butt paste, and sanitary pad to cover the anal region. (2) Liver mass, right lobe: Status: Acute Assessment and plan: Although this is not patient's primary complaint, it is more concerning. Patient is planned to follow-up with his primary care physician 3 weeks from now. (3) Weight loss: Status: Acute Assessment and plan: Plan to to follow-up with primary care physician as above. He is also going to get set up with our surgical clinic here for outpatient elective colonoscopy. History of Present Illness History of Present Illness Chief Complaint: Anal pain Narrative: Mr. Veras is a 64-year-old male, he has a history of what sounds like a gastric outlet obstruction, having undergone gastrectomy 3 years ago. He has always been thin, reports that he lost weight after the gastric outlet obstruction, and now he has lost about 20 pounds over the past few months. His presenting complaint today is pain in the left perianal region. He reports no melena nor hematochezia. Normal bowel movements without straining. No recent change in diet. He is currently seeing a primary care physician, next appointment is 3 weeks from now, and is to address weight loss. Review of Systems Narrative: General, patient with weight loss as above. CV, history of coronary artery disease, and [place]. Respiratory, history of COPD. Patient is an active smoker. GI, as per HPI above. , negative. Musculoskeletal, overall cachexia, and muscular atrophy. Neuro, negative. Psych, negative. Endocrine, negative. PFSH All Active Problems (Updated 05/18/25 @ 16:33 by Jose Alberto Mcgregor MD) Weight loss (Acute) Liver mass, right lobe (Acute) Abnormal CT of liver (Acute) Chronic rectal pain (Acute) Closed fracture of left lateral malleolus (Acute ~02/16/23) Social History Smoking/Tobacco Use Status: Current every day Tobacco Type: cigarettes Smoking risk assessment performed?: Yes Alcohol Intake: never Drug use: Never Substance use type: does not use Housing: house Do you feel safe at home: Yes Do you feel safe in your relationship?: Yes Exam Narrative Exam Narrative: Patient is a cachectic appearing adult male, his vital signs are unremarkable. He is abdomen has a generous prior midline laparotomy from total gastrectomy. He was examined in the left lateral decubitus position with his nurse present as an podiatrist assistant and visiting professor. The perianal region has some visible skin tags. There is no ulceration on the perianal region. The patient's ischial tuberosities are prominent and easily palpable secondary to weight loss. On superficial examination of the perianal skin, there is tenderness on the left lateral portion of the anal skin, but no visible excoriation, ulcer nor fissure. Rectal exam was performed, patient with good rectal tone, some palpable mucosal redundancy within the rectal vault, no tenderness on examination, no palpable masses. Results Last Vital Signs Temp 36.4 C 05/18/25 11:12 Pulse 59 L 05/18/25 15:46 Resp 16 05/18/25 15:46 BP 137/77 05/18/25 15:46 Pulse Ox 98 05/18/25 15:46 Labs 05/18/25 12:03 05/18/25 12:03 Labs: Laboratory Results - last 24 hr 05/18/25 05/18/25 12:03 12:15 WBC 9.18 RBC 4.65 Hgb 13.7 Hct 40.4 MCV 87 MCH 29.5 MCHC 33.9 RDW 14.6 H Plt Count 310 MPV 8.3 Immature Gran % 0.3 Neutrophils % 73.6 Lymphocytes % 15.3 Monocytes % 7.7 Eosinophils % 2.2 Basophils % 0.9 Nucleated RBC % 0.0 Absolute Neutrophils 6.76 H Absolute Lymphocytes 1.40 Absolute Monocytes 0.71 Absolute Eosinophils 0.20 Absolute Basophils 0.08 VBG Lactate 1.0 Sodium 132 L Potassium 4.8 Chloride 100 Carbon Dioxide 24.4 Anion Gap 7.6 BUN 9 Creatinine 1.0 Est GFR (CKD-EPI 2020) 84.05 Glucose 99 Calcium 8.1 L Total Bilirubin 0.5 AST 15 ALT 15 L Alkaline Phosphatase 61 Total Protein 7.0 Albumin 3.7 Lipase 14 Urine Color Straw Urine Clarity Clear Urine pH 6.5 Ur Specific [place] 1.015 Urine Protein 30 H Urine Ketones Trace H Urine Blood Negative Urine Nitrite Negative Urine Bilirubin Negative Urine Urobilinogen 2.0 H Ur Leukocyte Esterase Trace H Urine RBC Negative Urine WBC 0-2 Ur Epithelial Cells Negative Urine Crystals Negative Urine Bacteria Few Urine Casts Negative Urine Mucus Negative Ur Culture Indicated? No Urine Glucose Negative Imaging Abdomen CT scan report/results: report reviewed, image reviewed and other (A CT scan was performed, there is a indeterminant 2 cm hypodensity in the periphery of the liver. The radiologist has recommended outpatient MRI.)
--- NOTE | 2025-05-19 14:17 | W.EDPROG ---
Date of service: 05/19/25 Time of Service: 14:17 Medical Decision Making There is an issue prescribing this patient's tramadol from his ED visit yesterday. I sent him for a course of tramadol every 6 hours as needed. Will prescribe 6, 50 mg tabs total. Discharge Plan Disposition Patient Disposition: Home Discharge Details Clinical Impression: Chronic rectal pain, Abnormal CT of liver Primary Care Provider: Guanaco Schmitt ED Provider: George Pritchard Home Meds and New Rx's Prescriptions: New capsaicin [CapsAid ES] 0.1 % cream 1 applic topical BID Qty: 42.5 0RF Rx Instructions: Do not wash area for at least 30 min after application tramadol 50 mg tablet 50 mg PO Q6H PRNQty: 6 0RF Rx Instructions: Please cut in half and take half a tab at a time. No Action amitriptyline 10 MG tablet 10 mg PO HS albuterol sulfate [Proventil HFA] 1 PUFF HFA aerosol inhaler 1 - 2 puff Inhalation DIRECTED Pulmocare 1,000 ML liquid 240 ml PO BID trazodone 50 mg Tablet 150 mg PO HS calcium carbonate-vitamin D3 600 mg-5 mcg (200 unit) Tablet 1 tab PO BID omeprazole 40 mg Capsule,Delayed Release(Dr/Ec) 40 mg PO BID famotidine 20 mg Tablet 20 mg PO BID melatonin 5 mg Tablet 5 mg PO HS furosemide [Lasix] 20 mg tablet 20 mg PO QAM Qty: 14 0RF Eliquis DVT-PE Treat 30D Start 5 mg (74 tabs) tablets,dose pack 5 mg PO ONCE Qty: 74 0RF Rx Instructions: 10mg PO twice daily for 7 days then 5mg BID nortriptyline 25 mg capsule 25 mg PO ONCE Patient Comments: TAKE ONE CAPSULE BY MOUTH EVERY NIGHT AT BEDTIME betamethasone, augmented 0.05 % cream 1 applic TOPICAL BID Patient Comments: APPLY TOPICALLY TO AFFECTED AREA(S) TWO TIMES A DAY FOR 90 DAYS hydrocortisone 2.5 % cream with perineal applicator 1 applic topical TID Patient Comments: APPLY TOPICALL TO RECTUM VIA APPLICATOR THREE TIMES A DAY betamethasone dipropionate 0.05 % cream 1 applic TOPICAL BID PRN Patient Comments: APPLY 1 APPLICATION TOPICALLY TO THE AFFECTED AREA TWICE DAILY NEEDED Ensure Liquid PO DAILY Patient Comments: DRINK 2 SHAKES BY MOUTH A SNACK OR WITH A SMALL MEAL DAILY Discharge Instructions Instructions: Proctitis, Chronic pain Additional Instructions: Please follow-up with your primary care provider as well as her general surgery practice who you have been referred to for colonoscopy which should occur over the next 1 to 2 months. If you do not hear from our general surgery practice please call [facility] at [phone]. Please take your medications as prescribed. Please return to the emergency department you develop worsening symptoms to include pain, rectal bleeding, fever, chills, vomiting or any other new or concerning symptoms. Discharge Data Discharge Date/Time-TO BE ENTERED AT DEPARTURE: 05/18/25 16:46
== END 2025-05-18 16:46 | disposition home or self-care (01) ==
PROVIDERS: Emergency Provider General Practice; PCP Neuromusculoskeletal Medicine & OMM
DX: K62.89 Other specified diseases of anus and rectum (principal); R93.2 Abnormal findings on diagnostic imaging of liver and biliary tract; J44.9 Chronic obstructive pulmonary disease, unspecified; I25.10 Atherosclerotic heart disease of native coronary artery without angina pectoris; I25.2 Old myocardial infarction; F17.210 Nicotine dependence, cigarettes, uncomplicated; Z90.3 Acquired absence of stomach [part of]; Z79.01 Long term (current) use of anticoagulants
CPT/HCPCS: 00123; 80053; 83690; 96374; 96376; 99285; 74177; 81003; 81015; 83605; 85025; J1171; J3490

== ENCOUNTER → 2025-09-01 02:46 | Outpatient (CLI) | payer MEDICARE, MEDICAID, SELFPAY ==
--- NOTE | 2025-09-01 12:10 | DI.US_ITS ---
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 Technically limited study due to body habitus, smoker. Conclusion Normal left ventricular wall thickness and chamber size. Ejection fraction is 60 to 65%. Wall motion is normal Normal right ventricular size and function Both atria are normal in size There is no structural or hemodynamically significant valvular disease Estimated right ventricular systolic pressure is 39 mmHg Wall motion Left Ventricle The left ventricle is normal size. The left ventricular systolic function is normal. The left ventricular ejection fraction is within the normal range. There is normal left ventricular wall thickness. There is normal LV segmental wall motion. There is no ventricular septal defect visualized. LVEF is 60-65%. Right Ventricle The right ventricle is normal size. The right ventricular systolic function is normal. Atria The left atrium size is normal. The right atrium size is normal. The interatrial septum is intact with no evidence for an atrial septal defect. Aortic Valve The aortic valve is normal in structure. There is no aortic valvular stenosis. No aortic regurgitation is present. Mitral Valve The mitral valve is normal in structure. No evidence of mitral valve stenosis. Trace mitral regurgitation. Tricuspid Valve The tricuspid valve is normal in structure. There is no tricuspid valve stenosis. Trace tricuspid regurgitation. The RVSP is 38.7_ mmHg. Pulmonic Valve The pulmonary valve is normal in structure. There is no pulmonic valvular stenosis. There is no pulmonic valvular regurgitation. Great Vessels The aortic root is normal in size. Ascending aorta is not well visualized. Aortic arch is not well visualized. IVC is normal in size and collapses >50% with inspiration. Pericardium There is no pericardial effusion. 2D Dimensions IVSD d PLAX 0.81 cm M: 0.6-1.2 Ao Root d 2.61 cm M: 3.1 - 3.7 LVPW d PLAX 0.80 cm M: 0.6 - 1.2 LVID d PLAX 4.70 cm M: 4.2 - 5.8 LVDs 3.00 cm M: 2.5 - 4.0 LV EF Teichholz 64.9 % FS 35.42 % LV EDV (Teich) 100.0 mL LV ESV (Teich) 35.1 mL M-Mode TAPSE 2.00 cm (M/F) >1.7 Auto EF LV EDV A4C 90.6 mL LV EDV A2C 110.0 mL LV EDV BP 101.6 mL LV ESV A4C 36.0 mL LV ESV A2C 40.7 mL LV ESV BP 37.6 mL LVEF(%) A4C 60.2 % LVEF(%) A2C 63.0 % LVEF(%) BP 63.0 % LV SV A4C 54.6 ml LV SV A2C 69.3 ml LV SV BP 64.0 ml LV CO A4C 3.5 L/min LV CO A2C 4.6 L/min LV CO BP 4.0 L/min HR A4C 64.75 BPM HR A2C 65.81 BPM LV EDV Index (BP) LA Volume LA Length A4C 4.5 cm LA Length A2C 5.1 cm LA Area A4C s 13.75 cm2 LA Area A2C s 16.48 cm2 LA Vol A4C A-L 35.78 mL LA Vol A2C A-L 45.02 mL LA Vol Biplane A-L 42.9 mL LA Vol/BSA A4C A-L LA Vol/BSA A2C A-L LA Vol/BSA BP A-L 24.6 mL/m2 LA Vol A4C MOD 33.3 mL LA Vol A2C MOD 42.3 mL LA Vol BP MOD 40.0 mL RA Volume RA Area A4C 12.5 cm2 RA ESV A4C (A-L) 32.2mL RA Vol/BSA A4C A-L RA Length A4C 4.1 cm RA ESV A4C (MOD) 30.4mL LV Diastology MV E' medial 0.111 (>0.07 m/s) MV E Vmax 1.07 (0.4-1.3 m/s) MV E/E' MED 9.64 (<14) MV A Vmax 0.65 (0.4-1.3 m/s) MV E' lateral 0.134 (>0.1 m/s) E/A Ratio 1.6 MV E/E' LAT 8.03 (<14) MV E' Average 0.122 m/s MV E/E'(average) 8.76 Aortic Valve AoV Vmax 1.87 m/s LVOT Vmax 1.37 m/s AoV Peak Grad 14.0 mmHg LVOT Peak Grad 7.5 mmHg AoV Area (Vmax) 1.90 cm2 LVOT VTI 0.283 m AoV VTI 0.396 m LVOT Mean Grad 3.8 mmHg AoV Mean [place]. 1.18 m/s LVOT SV 73.54 mL AoV Mean Grad 6.6 mmHg LVOT Diam s 1.80 cm AoV Area (VTI) 1.86 cm2 AV Regurg Peak Gr. 13.99 mmHg Velocity Ratio 0.73 Mitral Valve MV DT 198 (160-240 msec) MV Vmax TIPS 1.20 m/s MV Mean Grad 2.0 (<2mmHg) MV VTI 0.379 m Pulmonary Valve PV Vmax 1.56 (0.5-1.5 m/s) RVOT Vmax 0.83 m/s PV Peak Grad 9.7 mmHg RVOT Peak Gr. 2.7 mmHg PV Mean [place] 1.14 m/s RVOT VTI 0.175 m PV Mean Grad 5.9 mmHg RVOT Mean Gr. 1.7 mmHg Tricuspid Valve RA Pressure 3.00 mmHg TR Vmax 2.99 m/s TV S' 0.13 m/s TR Peak Grad 35.7 mmHg RVSP (TR) 38.7 mmHg
== END ==
PROVIDERS: PCP Neuromusculoskeletal Medicine & OMM; Visit Provider Specialist/Technologist Athletic Trainer
DX: R55 Syncope and collapse (principal)
CPT/HCPCS: 93306

== ENCOUNTER → 2025-10-09 12:39 | Outpatient (BNVA) | payer MEDICARE, MEDICAID, SELFPAY | PROVIDERS: PCP Specialist/Technologist Athletic Trainer; Referring Provider Specialist/Technologist Athletic Trainer; Visit Provider Podiatrist | DX: T84.84XA Pain due to internal orthopedic prosthetic devices, implants and grafts, initial encounter (principal); M20.42 Other hammer toe(s) (acquired), left foot; M20.41 Other hammer toe(s) (acquired), right foot; M21.611 Bunion of right foot; Z72.0 Tobacco use | CPT/HCPCS: 99214 ==

== ENCOUNTER → 2025-10-09 14:48 | Outpatient (CLI) | payer MEDICARE, MEDICAID, SELFPAY ==
--- NOTE | 2025-10-09 13:30 | DI.RAD_ITS ---
Exam(s) XR FOOT LT COMPLETE EXAM: XR FOOT LT COMPLETE CLINICAL HISTORY: assess for displaced hardware L 2nd toe DIP,FX OF LATERAL MALLEOU S82.62XA. TECHNIQUE: 2D digital imaging was performed. Three views. COMPARISON: CR XR FOOT COMPLETE MIN 3V LT from 05/11/2025 FINDINGS: BONES: No acute fracture is present. No bony destructive lesion is seen. Postsurgical changes with wires in place at the 1st metatarsal. Cerclage wire at the medial aspect of the base of the proximal phalanx of the great toe. Pins noted for fusion through the 2nd and 4th toes. JOINTS: No dislocation present. Degenerative changes and hammertoe deformity of the 3rd toe. SOFT TISSUE: Small linear opacity again noted in the plantar soft tissues at the level of the bases of the 4th and 5th metatarsals. IMPRESSION: Stable postsurgical changes of the left foot. DATA REPOSITORY: RADIATION DOSE DELIVERED:
--- NOTE | 2025-10-09 13:30 | DI.RAD_ITS ---
Exam(s) XR FOOT RT COMPLETE EXAM: XR FOOT RT COMPLETE CLINICAL HISTORY: baseline, comparison, BILAT FOOT PAIN, M79.671, M79.672. TECHNIQUE: 2D digital imaging was performed. Three views. COMPARISON: CR LEFT FOOT COMPLETE from 12/31/2012 CR XR FOOT LT COMPLETE from 03/26/2023 FINDINGS: BONES: No acute fracture is present. No bony destructive lesion is seen. JOINTS: No dislocation present. First metatarsal varus and hallux valgus. There is overlap of the 2nd toe over the 1st toe. There are hammertoe deformities. Plantar arch is maintained. SOFT TISSUE: Normal. IMPRESSION: Hallux valgus and hammertoe deformities. DATA REPOSITORY: RADIATION DOSE DELIVERED:
== END ==
LOC: DI 14:48
PROVIDERS: PCP Specialist/Technologist Athletic Trainer; Visit Provider Podiatrist
DX: S82.62XD Displaced fracture of lateral malleolus of left fibula, subsequent encounter for closed fracture with routine healing (principal); M79.671 Pain in right foot; M79.672 Pain in left foot; M20.11 Hallux valgus (acquired), right foot; M20.5X1 Other deformities of toe(s) (acquired), right foot; X58.XXXD Exposure to other specified factors, subsequent encounter
CPT/HCPCS: 73630